=== PATIENT | male | born 1975 | race Two or more races ===

== ENCOUNTER 2021-02-18 12:05 | Emergency (ER) | payer SELFPAY ==
[2021-02-18 12:29] VITALS: BP 146/83; PULSE 73; TEMP 99.3; BMI 33.3
[2021-02-18] MEDS ORDERED: SODIUM CHLORIDE 1,000 ML IV STA ×2 (12:37→13:46)
[2021-02-18 13:17] LABS: BASO % 1.8 % (0-2.0); EOS % 2.7 % (0-4.5); HEMATOCRIT 47.7 % (35.4-49); HEMOGLOBIN 16.1 GM/dl (11.7-16.9); LYMPH % 31.5 % (8-40); MCH 27.1 pg (25.7-33.7); MCHC 33.9 g/dl (32.0-35.9); MEAN PLT VOLUME 11.8 fl (7.5-11.1); MONO % 6.1 % (3.8-10.2); NEUT % 57.9 % (42.8-82.8); PLATELET COUNT 121 10^3/uL (134-434); RBC 5.96 M/mm3 (4.00-5.60); RDW 14.7 % (11.9-15.9); WHITE BLOOD COUNT 7.6 K/mm3 (4.0-10.8)
[2021-02-18 13:22] LABS: ALBUMIN 4.8 g/dl (3.4-5.0); BILIRUBIN,TOTAL 1.2 mg/dl (0.2-1); CREATININE 0.7 mg/dl (0.55-1.3)
[2021-02-18 14:35] LABS: VENOUS BASE EXCESS -0.6 mmol/L (-2-2); VENOUS O2 SATURATION 80.6 % (70-80); VENOUS PCO2 41.8 mmHg (38-52); VENOUS PH 7.386 (7.310-7.410)
== END 2021-02-18 15:35 | disposition home or self-care (01) ==
LOC: FER 12:05
PROC: 3E0337Z Introduction of Electrolytic and Water Balance Substance into Peripheral Vein, Percutaneous Approach (ICD-10-PCS; principal; 2021-02-18)
PROC: 3E0337Z Introduction of Electrolytic and Water Balance Substance into Peripheral Vein, Percutaneous Approach (ICD-10-PCS; 2021-02-18)
DX: R73.9 Hyperglycemia, unspecified (principal)
CPT/HCPCS: 36415; 80053; 81003; 82010; 82803; 82962; 83735; 84100; 85025; 87086; 99284-25

== ENCOUNTER 2022-03-22 19:32 | Inpatient (IN) | payer OTHER ==
[2022-03-22] MEDS ORDERED: SODIUM CHLORIDE 1,000 ML IV ONE ×2 (20:04→21:09)
[2022-03-22] MEDS ORDERED: FLUCONAZOLE 100 MG TABLET (UD) PO ONE (20:14)
[2022-03-22] MEDS ORDERED: metroNIDAZOLE 500 MG TABLET PO ONE (20:15)
[2022-03-22] MEDS ORDERED: ACETAMINOPHEN 500 MG TABLET (FP) PO ONE (20:17)
[2022-03-22 20:30] LABS: HEMATOCRIT 39.2 % (35.4-49); HEMOGLOBIN 13.9 G/dL (11.7-16.9); MCH 27.6 pg (25.7-33.7); MCHC 35.3 g/dl (32.0-35.9); MEAN PLT VOLUME 11.4 fl (7.5-11.1); PLATELET COUNT 102.3 10^3/uL (134-434); RBC 5.02 10^6/uL (4.00-5.60); RDW 14.8 % (11.9-15.9); WHITE BLOOD COUNT 3.6 10^3/uL (4.0-10.8)
[2022-03-22] MEDS ORDERED: INSULIN REGULAR HUMAN 100 UNITS/ML *VIAL IVPUSH ONE (20:30)
[2022-03-22 20:39] LABS: BILIRUBIN,TOTAL 1.9 mg/dl (0.2-1); CALCIUM 8.7 mg/dl (8.5-10); CREATININE 0.9 mg/dl (0.55-1.3); TOT PROT 7.2 g/dl (6.4-8.2)
[2022-03-22] MEDS ORDERED: ACETAMINOPHEN 500 MG TABLET (FP) ONE (20:56)
[2022-03-22] MEDS ORDERED: FLUCONAZOLE 150 MG TABLET PO ONE (20:56)
[2022-03-22] MEDS ORDERED: FLUCONAZOLE 50 MG TABLET PO ONE (20:56)
[2022-03-22] MEDS ORDERED: metroNIDAZOLE 250 MG TABLET ONE (20:56)
[2022-03-22] MEDS ORDERED: INSULIN REGULAR HUMAN 100 UNITS/ML *VIAL ONE (20:58)
[2022-03-22] MEDS ORDERED: PIPERACILLIN/TAZOB 3.375 GM 3.375 GM in DEXTROSE 5%-WATER - 50 ML IVPB ONE (21:09)
[2022-03-22] MEDS ORDERED: PIPERACILLIN/TAZOBACTAM 3.375 GM VIAL IVPB ONE (21:12)
[2022-03-22 23:35] VITALS: BMI 33.5
[2022-03-23] MEDS ORDERED: SODIUM CHLORIDE 1,000 ML IV SCH ×2 (00:45→10:28)
[2022-03-23] MEDS: ACETAMINOPHEN 325 MG TABLET (FP) PO PRN ×2 (06:25→21:07)
[2022-03-23] MEDS: INSULIN SLIDING SCALE (NOVOLOG) 1 VIAL SQ SCH ×4 (06:59→21:06)
[2022-03-23 08:18] LABS: ALBUMIN 3.4 g/dl (3.4-5.0); BILIRUBIN,TOTAL 1.7 mg/dl (0.2-1); CALCIUM 8.1 mg/dl (8.5-10); CREATININE 0.8 mg/dl (0.55-1.3); TOT PROT 6.3 g/dl (6.4-8.2)
[2022-03-23] MEDS: metroNIDAZOLE 250 MG TABLET PO SCH ×2 (09:06→21:06)
[2022-03-23] MEDS: SODIUM CHLORIDE 1,000 ML IV SCH (10:30)
[2022-03-23 10:34] LABS: HEMATOCRIT 37.3 % (35.4-49); MCH 26.8 pg (25.7-33.7); MCHC 34.9 g/dl (32.0-35.9); MEAN CELL VOLUME 76.9 fl (80-96); MEAN PLT VOLUME 10.9 fl (7.5-11.1); PLATELET COUNT 93 10^3/uL (134-434); RBC 4.84 M/mm3 (4.00-5.60); RDW 14.8 % (11.9-15.9); WHITE BLOOD COUNT 4.3 K/mm3 (4.0-10.0)
[2022-03-23] MEDS: PIPERACILLIN/TAZOB 3.375 GM 3.375 GM in DEXTROSE 5%-WATER - 50 ML IVPB SCH ×2 (11:21→18:53)
[2022-03-23] MEDS: CLOTRIMAZOLE 1% CREAM TP SCH ×2 (11:26→21:05)
[2022-03-23 12:51] LABS: ANISOCYTOSIS 2+; MACROCYTOSIS 0
[2022-03-24] MEDS: PIPERACILLIN/TAZOB 3.375 GM 3.375 GM in DEXTROSE 5%-WATER - 50 ML IVPB SCH ×2 (01:19→09:46)
[2022-03-24] MEDS: INSULIN SLIDING SCALE (NOVOLOG) 1 VIAL SQ SCH ×2 (07:09→11:48)
[2022-03-24] MEDS ORDERED: INSULIN (LEVEMIR) 100 UNITS/ML UNITS SQ SCH (07:18)
[2022-03-24 08:20] LABS: HEMATOCRIT 38.9 % (35.4-49); HEMOGLOBIN 13.3 G/dL (11.7-16.9); MCH 26.5 pg (25.7-33.7); MCHC 34.1 g/dl (32.0-35.9); MEAN CELL VOLUME 77.6 fl (80-96); MEAN PLT VOLUME 11.6 fl (7.5-11.1); PLATELET COUNT 112.8 10^3/uL (134-434); RBC 5.01 10^6/uL (4.00-5.60); RDW 16.1 % (11.9-15.9); WHITE BLOOD COUNT 5.2 10^3/uL (4.0-10.8)
[2022-03-24 08:31] LABS: ALBUMIN 3.3 g/dl (3.4-5.0); BILIRUBIN,TOTAL 1.5 mg/dl (0.2-1); CALCIUM 8.5 mg/dl (8.5-10); CREATININE 0.7 mg/dl (0.55-1.3); TOT PROT 6.4 g/dl (6.4-8.2)
[2022-03-24] MEDS: metroNIDAZOLE 250 MG TABLET PO SCH (09:45)
[2022-03-24] MEDS: CLOTRIMAZOLE 1% CREAM TP SCH (09:47)
[2022-03-24] MEDS ORDERED: ENOXAPARIN NA (PORCINE) 40 MG/0.4 ML DISP.SYRIN SQ SCH (10:00)
[2022-03-24] MEDS: SODIUM CHLORIDE 1,000 ML IV SCH (11:49)
[2022-03-24 14:08] VITALS: BP 123/71; PULSE 73; RESP 18; TEMP 98.4
== END 2022-03-24 16:26 | disposition home or self-care (01) | DRG 501 ==
LOC: FER 19:32 → FM/S 22:26
PROVIDERS: ADMIT Family Medicine; ATTEND Internal Medicine
DX: N48.1 Balanitis (principal); Z79.84 Long term (current) use of oral hypoglycemic drugs; E87.1 Hypo-osmolality and hyponatremia; E11.65 Type 2 diabetes mellitus with hyperglycemia; R31.29 Other microscopic hematuria; E66.9 Obesity, unspecified; Z68.33 Body mass index [BMI] 33.0-33.9, adult
CPT/HCPCS: 0241U-QW; 36415; 71045-TC-FY; 76775-TC; 76856-TC; 80053; 81003; 81015; 82436; 82550; 82962; 83605; 83930; 83935; 84133; 84300; 85025; 85027; 87040; 87070; 87077; 87086; 87205; 87491; 87591; 87661; 93005; 99285-25